=== PATIENT | male | born 1975 | race Caucasian/White ===

== ENCOUNTER 2016-12-06 08:53 | Emergency (ER) | payer BC ==
[2016-12-06 08:54] VITALS: BMI 39.0
[2016-12-06 09:18] VITALS: TEMP 99
--- NOTE | 2016-12-06 09:57 | ED PDOC ---
Arrival/HPI - General Chief Complaint: Lower Extremity Problem/Injury Time Seen by Provider: 12/06/16 09:25 Historian: Patient - History of Present Illness Narrative History of Present Illness (Text): 12/06/16 09:53 41yo morbidly obese male present with complaint of left great toe pain s/p trauma 2days ago. He states that he hyperextended his toe, when he stepped out of his truck 2days ago. Toe became swollen and pain today. Pain with weight bearing and ambulation. Took 2tabs of Ibuprofen this morning with mild relieve. Denies any other complaint. Past Medical History - Provider Review Nursing Documentation Reviewed: Yes - Infectious Disease Hx of Infectious Diseases: None - Tetanus Immunization Tetanus Immunization: Up to Date - Past Medical History Past Medical History: No Previous - Psychiatric Hx Psychophysiologic Disorder: No Hx Anxiety: No Hx Bipolar Disorder: No Hx Depression: No Hx Emotional Abuse: No Hx Hallucinations: No Hx Panic Disorder: No Hx Post Traumatic Stress Disorder: No Hx Psychosis: No Hx Physical Abuse: No Hx Schizophrenia: No Hx Sexual Abuse: No Hx Substance Use: No - Past Surgical History Past Surgical History: Non-Contributing - Surgical History Hx Orthopedic Surgery: Yes (left arm surgery and right knee surgery) - Anesthesia Hx Anesthesia: Yes Hx Anesthesia Reactions: No Hx Malignant Hyperthermia: No - Suicidal Assessment Feels Threatened In Home Enviroment: No Family/Social History - Physician Review Nursing Documentation Reviewed: Yes Family/Social History: Unknown Family HX Smoking Status: Heavy Smoker > 10 Cigarettes Daily Hx Alcohol Use: Yes Frequency of alcohol use: Socially Hx Substance Use: No Hx Substance Use Treatment: No Allergies/Home Meds Allergies/Adverse Reactions: Allergies almond Allergy (Verified 12/06/16 09:15) RASH Review of Systems - Physician Review All systems were reviewed & negative as marked: Yes - Review of Systems Constitutional: Normal Eyes: Normal ENT: Normal Respiratory: Normal Cardiovascular: Normal Gastrointestinal: Normal Genitourinary Male: Normal Musculoskeletal: Arthralgias (Left great toe) Skin: Normal Neurological: Normal Endocrine: Normal Hemo/Lymphatic: Normal Psychiatric: Normal Physical Exam Vital Signs Reviewed: Yes Vital Signs Temp Pulse Resp BP Pulse Ox 12/06/16 09:17 99.0 F 99 H 17 147/101 H 97 Temperature: Afebrile Blood Pressure: Hypertensive Pulse: Regular Respiratory Rate: Normal Appearance: Positive for: Well-Appearing, Non-Toxic, Comfortable Pain Distress: None Mental Status: Positive for: Alert and Oriented X 3 - Systems Exam Head: Present: Atraumatic, Normocephalic Pupils: Present: PERRL Extroacular Muscles: Present: EOMI Conjunctiva: Present: Normal Mouth: Present: Moist Mucous Membranes Neck: Present: Normal Range of Motion Respiratory/Chest: Present: Clear to Auscultation, Good Air Exchange. No: Respiratory Distress, Accessory Muscle Use Cardiovascular: Present: Regular Rate and Rhythm, Normal S1, S2. No: Murmurs Abdomen: Present: Normal Bowel Sounds. No: Tenderness, Distention, Peritoneal Signs Back: Present: Normal Inspection Upper Extremity: Present: Normal Inspection. No: Cyanosis, Edema Lower Extremity: Present: NORMAL PULSES, Tenderness (Over the great left toe), Swelling (Left great toe), Neurovascularly Intact. No: Edema, CALF TENDERNESS, Normal ROM, Erythema, Deformity, Temperature Abnormalties Neurological: Present: GCS=15, CN II-XII Intact, Speech Normal Skin: Present: Warm, Dry, Normal Color. No: Rashes Psychiatric: Present: Alert, Oriented x 3, Normal Insight, Normal Concentration Medical Decision Making ED Course and Treatment: 12/06/16 10:11 Left foot xray - No acute finding Orth shoe given. Referred to his PMD/Ortho. TRT ED for any new or worsening symptoms - RAD Interpretation Radiology Orders: 12/06/16 09:26 FOOT LEFT GREAT TOE ROUTINE [RAD] Stat - Medication Orders Current Medication Orders: Discontinued Medications Tramadol HCl (Ultram) 50 mg PO STAT STA Stop: 12/06/16 09:27 Last Admin: 12/06/16 09:31 Dose: 50 mg Disposition/Present on Arrival - Present on Arrival Any Indicators Present on Arrival: No History of DVT/PE: No History of Uncontrolled Diabetes: No Urinary Catheter: No History of Decub. Ulcer: No History Surgical Site Infection Following: None - Disposition Have Diagnosis and Disposition been Completed?: Yes Diagnosis: Toe sprain Disposition: HOME/ ROUTINE Disposition Time: 10:15 Patient Plan: Discharge Condition: STABLE Discharge Instructions (ExitCare): Arthralgia (ED) Additional Instructions: Follow up with your Doctor/Orthopedist Return to ED for any new or worsening symptoms Prescriptions: Naproxen [Naprosyn] 500 mg PO BID #20 tablet Referrals: Vik Mcgregor, [Primary Care Provider] - Follow up with primary Ajay Lees MD [Staff Provider] - Follow up with primary
--- NOTE | 2016-12-06 10:08 | RAD ---
PROCEDURE: Left Foot Radiographs. HISTORY: toe pain s/p trauma COMPARISON: None. FINDINGS: BONES: Normal. No fracture. JOINTS: Normal. SOFT TISSUES: Normal. OTHER FINDINGS: None. IMPRESSION: Normal left foot radiographs.
[2016-12-06 10:22] VITALS: BP 138/91; PULSE 86; RESP 18; O2SAT 98
== END 2016-12-06 10:48 | disposition home or self-care (01) ==
LOC: ED 08:53
DX: S93.502A Unspecified sprain of left great toe, initial encounter (principal); X50.0XXA Overexertion from strenuous movement or load, initial encounter; Y93.89 Activity, other specified; Y92.89 Other specified places as the place of occurrence of the external cause

== ENCOUNTER 2017-01-30 19:27 | Emergency (ER) | payer BC ==
[2017-01-30 19:29] VITALS: BMI 40.0
[2017-01-30 19:35] VITALS: RESP 18; TEMP 97.9
--- NOTE | 2017-01-30 19:59 | ED PDOC ---
Arrival/HPI - General Historian: Patient, Family - History of Present Illness Symptom Onset: Gradual Symptom Course: Unchanged Quality: Aching Severity Level: 3 <Paloma Carreon - Last Filed: 01/31/17 01:55> <Hung White - Last Filed: 01/31/17 02:50> - General Chief Complaint: Lower Extremity Problem/Injury Time Seen by Provider: 01/30/17 19:53 - History of Present Illness Narrative History of Present Illness (Text): 01/30/17 19:56 41-year-old male with a history of alcohol abuse and cocaine use presents today with bilateral leg pain and right knee pain worsening over the past 2 months. Patient denies chest pain or shortness of breath. No abdominal pain. No nausea or vomiting. Family members state the patient has been drinking a lot lately and has been using drugs. Patient states he needs help. Patient with a prior history of meniscal repair in the right knee complaining of continued pain and swelling to the right knee and pain in the right calf. No fevers or chills. ( Paloma Carreon) Past Medical History - Provider Review Nursing Documentation Reviewed: Yes - Travel History Have you recently traveled outside [place] w/in the past 3 mons?: No - Infectious Disease Hx of Infectious Diseases: None - Tetanus Immunization Tetanus Immunization: Up to Date - Past Medical History Past Medical History: No Previous - Cardiac Hx Hypertension: Yes - Musculoskeletal/Rheumatological Hx Gout: Yes - Gastrointestinal Other/Comment: some type of liver problem - Psychiatric Hx Psychophysiologic Disorder: No Hx Anxiety: No Hx Bipolar Disorder: No Hx Depression: No Hx Emotional Abuse: No Hx Hallucinations: No Hx Panic Disorder: No Hx Post Traumatic Stress Disorder: No Hx Psychosis: No Hx Physical Abuse: No Hx Schizophrenia: No Hx Sexual Abuse: No Hx Substance Use: Yes Other/Comment: alcohol abuse - Past Surgical History Past Surgical History: Non-Contributing - Surgical History Hx Orthopedic Surgery: Yes (left arm surgery and right knee surgery) - Anesthesia Hx Anesthesia: Yes Hx Anesthesia Reactions: No Hx Malignant Hyperthermia: No - Suicidal Assessment Feels Threatened In Home Enviroment: No <Paloma Carreon - Last Filed: 01/31/17 01:55> Family/Social History - Physician Review Nursing Documentation Reviewed: Yes Family/Social History: Unknown Family HX Smoking Status: Heavy Smoker > 10 Cigarettes Daily Hx Alcohol Use: Yes Frequency of alcohol use: Daily Hx Substance Use: Yes Substance used: marijuana; crack - last used 01/28/2017 Hx Substance Use Treatment: No <Paloma Carreon - Last Filed: 01/31/17 01:55> Allergies/Home Meds <Paloma Carreon - Last Filed: 01/31/17 01:55> <HusseinHung - Last Filed: 01/31/17 02:50> Allergies/Adverse Reactions: Allergies almond Allergy (Verified 12/06/16 09:15) RASH Home Medications: Home Meds Medication Instructions Recorded Confirmed Naproxen [Naprosyn] 500 mg PO BID PRN 01/30/17 01/30/17 Review of Systems - Review of Systems Constitutional: absent: Fatigue, Fevers Respiratory: absent: SOB, Cough Cardiovascular: absent: Chest Pain, Palpitations Gastrointestinal: absent: Abdominal Pain, Nausea, Vomiting Musculoskeletal: Arthralgias. absent: Back Pain, Neck Pain Skin: absent: Rash, Pruritis Neurological: absent: Headache, Dizziness Psychiatric: absent: Anxiety, Depression, Suicidal Ideation <Paloma Carreon - Last Filed: 01/31/17 01:55> Physical Exam Vital Signs Reviewed: Yes Temperature: Afebrile Blood Pressure: Hypertensive Pulse: Regular Respiratory Rate: Normal Appearance: Positive for: Well-Appearing, Non-Toxic, Comfortable Pain Distress: None Mental Status: Positive for: Alert and Oriented X 3 - Systems Exam Head: Present: Atraumatic Mouth: Present: Moist Mucous Membranes Neck: Present: Normal Range of Motion Respiratory/Chest: Present: Clear to Auscultation, Good Air Exchange. No: Respiratory Distress, Accessory Muscle Use Cardiovascular: Present: Regular Rate and Rhythm, Normal S1, S2. No: Murmurs Abdomen: No: Tenderness Upper Extremity: Present: Normal Inspection Lower Extremity: Present: CALF TENDERNESS, NORMAL PULSES, Normal ROM, Tenderness (right leg; + edema to knee, no erythema; full rom of knee with pain ; sensation and distal pulses intact. + calf tenderness. left leg; + minimal edema, + calf tenderness. ), Swelling, Neurovascularly Intact, Capillary Refill < 2 s. No: Temperature Abnormalties Neurological: Present: GCS=15, Speech Normal Skin: Present: Warm, Dry, Normal Color. No: Rashes Psychiatric: Present: Alert, Oriented x 3 <Paloma Carreon - Last Filed: 01/31/17 01:55> Medical Decision Making <Paloma Carreon - Last Filed: 01/31/17 01:55> <Hung White - Last Filed: 01/31/17 02:50> ED Course and Treatment: 01/30/17 19:59 Patient is nontoxic well-appearing in no distress vital signs are stable. CBC WNL CMP WNL Tylenol WNL Salicylate WNL Alcohol level 293 Urine drug screen:cocaine UA; trace blood cxr: wnl right knee xray; no fracture venous duplex bilateral lower legs; no DVT verbal report from [facility] [employer]. ekg normal sinus rhythm with sinus arrhythmia at 68 bpm normal axis normal intervals and no ST elevations 01/31/17 01:36 pt has been observed in the ER for 6 hours and is clinically sober. pt is medically cleared for PES evaluation and Detox Patient was seen and evaluated by PES screener: Freida all results discussed with patient. Impression; alcohol intoxication transfer to [facility] 01/31/17 01:55 case signed out to dr. white; pending accepting physician for detox. ( Paloma Carreon) 01/31/17 02:00 Case endorsed to ca pending transfer for detox. 01/31/17 02:46 Pt accepted on transfer for alcohol detox by Dr. Jay at [facility]. Pt stable for transfer. (Hung White) - Lab Interpretations Lab Results: 01/30/17 21:27 01/30/17 21:27 Lab Results 01/30/17 22:38: Urine Opiates Screen Negative, Urine Methadone Screen Negative, Ur Barbiturates Screen Negative, Ur Phencyclidine Scrn Negative, Ur Amphetamines Screen Negative, U Benzodiazepines Scrn Negative, U Oth Cocaine Metabols Positive H, U Cannabinoids Screen Negative 01/30/17 22:38: Urine Color Yellow, Urine Appearance Clear, Urine pH 6.0, Ur Specific [place] >= 1.030, Urine Protein 100 H, Urine Glucose (UA) Negative, Urine Ketones Negative, Urine Blood Trace-intact H, Urine Nitrate Negative, Urine Bilirubin Negative, Urine Urobilinogen 0.2, Ur Leukocyte Esterase Negative , Urine RBC 1 - 3, Urine WBC 2 - 5, Ur Epithelial Cells 0 - 2, Urine Bacteria Rare 01/30/17 21:27: Alcohol, Quantitative 293 H 01/30/17 21:27: Salicylates < 1 L, Acetaminophen < 10.0 L 01/30/17 21:27: Sodium 143, Potassium 3.8, Chloride 109 H, Carbon Dioxide 21, Anion Gap 17, BUN 11, Creatinine 0.9, Est GFR ( Amer) > 60, Est GFR (Non- Af Amer) > 60, Random Glucose 98, Calcium 8.3 L, Total Bilirubin 0.4, AST 40, ALT 51, Alkaline Phosphatase 89, Total Protein 7.1, Albumin 3.8, Globulin 3.3, Albumin/Globulin Ratio 1.2 01/30/17 21:27: WBC 5.9, RBC 4.72, Hgb 15.2, Hct 43.1, MCV 91.3, MCH 32.2, MCHC 35.3, RDW 13.8, Plt Count 257, MPV 9.3, Gran % 40.5 L, Lymph % (Auto) 51.1 H, [place] % (Auto) 6.1 H, Eos % (Auto) 2.0, Baso % (Auto) 0.3, Gran # 2.40, Lymph # 3.0, [place] # 0.4, Eos # 0.1, Baso # 0.02 - RAD Interpretation Radiology Orders: 01/30/17 19:54 CHEST PORTABLE [RAD] Stat KNEE RIGHT 2 VIEWS (AP & LAT) [RAD] Stat DUPLEX LOWER EXTRM VEIN BILAT [US] Stat - PA / DESKTOP ENGINEER / Resident Statement SCOT has reviewed & agrees with the documentation as recorded. SCOT has examined the patient and agrees with the treatment plan. <Hung White - Last Filed: 01/31/17 02:50> Disposition/Present on Arrival - Present on Arrival Any Indicators Present on Arrival: No History of DVT/PE: No History of Uncontrolled Diabetes: No Urinary Catheter: No History of Decub. Ulcer: No History Surgical Site Infection Following: None - Disposition Have Diagnosis and Disposition been Completed?: Yes Disposition Time: 01:05 Patient Plan: Transfer To [email or web address]) <Paloma Carreon - Last Filed: 01/31/17 01:55> <Hung White - Last Filed: 01/31/17 02:50> - Disposition Diagnosis: Alcohol intoxication, Alcohol abuse Patient Problems: Current Active Problems Problem Status Onset Alcohol abuse Acute Alcohol intoxication Acute Condition: FAIR Referrals: Ciaran Robins MD [Primary Care Provider] - Follow up with primary
[2017-01-30 21:34] LABS: ADD MANUAL DIFF? NO
[2017-01-30 21:50] LABS: BASO # 0.02 K/mm3 (0.0-2.0); BASO % 0.3 % (0.0-3.0); EOS # 0.1 (0.0-0.7); GRAN % 40.5 % (50.0-68.0); HEMATOCRIT 43.1 % (42.0-52.0); LYMPH % 51.1 % (22.0-35.0); MEAN CELL VOLUME 91.3 fL (80.0-105.0); MEAN CORPUSCULAR HEMOGLOBIN 32.2 pg (25.0-35.0); MEAN CORPUSCULAR HGB CONC 35.3 g/dl (31.0-37.0); MEAN PLATELET VOLUME 9.3 fl (7.0-11.0); MONO # 0.4 (0.1-0.6); MONO % 6.1 % (1.0-6.0); PLATELET COUNT 257 10^3/uL (120.0-450.0); RED CELL DISTRIBUTION WIDTH 13.8 % (11.5-14.5); WHITE BLOOD COUNT 5.9 10^3/ul (4.5-11.0)
[2017-01-30 22:13] LABS: ALB/GLOB RATIO 1.2 (1.1-1.8); ALKALINE PHOSPHATASE 89 U/L (38-133); ALT/SGPT 51 U/L (7-56); AST/SGOT 40 U/L (15-59); BILIRUBIN,TOTAL 0.4 mg/dL (0.2-1.3); BLOOD UREA NITROGEN 11 mg/dL (7-21); CALCIUM 8.3 mg/dL (8.4-10.5); CARBON DIOXIDE 21 mmol/L (21-33); CHLORIDE 109 mmol/L (98-107); GFR AFRICAN-AMERICAN > 60; GLUCOSE,RANDOM 98 mg/dL (70-110); POTASSIUM 3.8 mmol/L (3.6-5.0); SODIUM 143 mmol/L (132-148); TOTAL PROTEIN 7.1 g/dL (5.8-8.3)
[2017-01-30 23:05] LABS: URINE BILIRUBIN NEGATIVE (NEGATIVE); URINE BLOOD TRACE-INTACT (NEGATIVE); URINE GLUCOSE (UA) NEGATIVE (NEGATIVE); URINE KETONE NEGATIVE (NEGATIVE); URINE LEUKOCYTE ESTERASE NEGATIVE Leu/uL (NEGATIVE); URINE PROTEIN 100 mg/dL (<30 mg/dL); URINE UROBILINOGEN 0.2 E.U./dL (<1 E.U./dL)
[2017-01-30 23:08] LABS: URINE APPEARANCE CLEAR (CLEAR); URINE COLOR YELLOW (YELLOW)
[2017-01-30 23:36] LABS: URINE BACTERIA RARE (NEG); URINE EPITHELIAL CELLS 0 - 2 /hpf (0-5)
[2017-01-31 01:43] VITALS: O2SAT 99
[2017-01-31 03:54] VITALS: BP 143/91; PULSE 92
--- NOTE | 2017-01-31 09:48 | RAD ---
HISTORY: pes eval COMPARISON: 02/07/2016 FINDINGS: LUNGS: No active pulmonary disease. PLEURA: No significant pleural effusion identified, no pneumothorax apparent. CARDIOVASCULAR: Normal. OSSEOUS STRUCTURES: No significant abnormalities. VISUALIZED UPPER ABDOMEN: Normal. OTHER FINDINGS: None. IMPRESSION: No active disease.
--- NOTE | 2017-01-31 09:48 | RAD ---
PROCEDURE: Right Knee Radiographs. HISTORY: right knee pain COMPARISON: None. FINDINGS: BONES: Normal. No fracture. JOINTS: Normal. No osteoarthritis. JOINT EFFUSION: None. OTHER FINDINGS: None. IMPRESSION: Normal radiographs of the right knee.
--- NOTE | 2017-01-31 12:08 | CARD ---
APPROVED REPORT EKG Measurement Heart [id number] MN 140P [id number] <Conclusion> Normal sinus rhythm with sinus arrhythmia Low voltage QRS Left posterior fascicular block Abnormal ECG
--- NOTE | 2017-01-31 14:48 | US ---
HISTORY: Bilateral lower extremity venous ultrasound. Leg pain and swelling PHYSICIAN(S): Corby Preciado MD. TECHNIQUE: Duplex sonography and color-flow Doppler with graded compression were used to evaluate the deep venous systems of both lower extremities. The exam is limited by body habitus and edema. The tibial veins are not well seen FINDINGS: The visualized deep venous systems of both lower extremities are sonographically normal and compressible. Normal wave forms and augmentation are seen. There is no sonographic evidence for deep venous thrombosis in the visualized segments of both lower extremities. IMPRESSION: No sonographic evidence for deep venous thrombosis in the visualized segments of both lower extremities.
== END 2017-01-31 04:18 | disposition short-term general hospital (02) ==
LOC: ED 19:27
DX: F10.129 Alcohol abuse with intoxication, unspecified (principal); Y90.8 Blood alcohol level of 240 mg/100 ml or more
CPT/HCPCS: 71010; 73560; 80053; 81001; 85025; 93005; 93970; 99285; G0480

== ENCOUNTER 2017-04-24 14:35 | Emergency (ER) | payer BC ==
[2017-04-24 14:35] VITALS: BMI 40.0
[2017-04-24 14:54] VITALS: BP 141/79; PULSE 87; RESP 16; TEMP 98.2; O2SAT 97
--- NOTE | 2017-04-24 15:03 | ED PDOC ---
Arrival/HPI - General Chief Complaint: ENT Problem Time Seen by Provider: 04/24/17 14:50 Historian: Patient - History of Present Illness Narrative History of Present Illness (Text): 04/24/17 14:50 A 41 year old male, whose past medical history includes EtOH and substance abuse , presents to the emergency department complaining of chin pain for 2 days. Patient reports while at home, he was placing shower curtains while holding his keys. His hand slipped from the shower rajwinder and hit his chin with giordano chain, resulting in minimal puncture. He is here with chin pain and is concerned about part of the keychain being in his chin. Patient denies of any fever, chills, nausea, vomiting, diarrhea, abdominal pain, or any other complaints. Last tetanus is 2-3 years ago. No PMD Time/Duration: > week (2 days ago) Symptom Onset: Sudden Symptom Course: Unchanged Context: Home Past Medical History - Provider Review Nursing Documentation Reviewed: Yes - Infectious Disease Hx of Infectious Diseases: None - Tetanus Immunization Tetanus Immunization: Up to Date - Past Medical History Past Medical History: No Previous - Cardiac Hx Cardiac Disorders: Yes Hx Hypertension: Yes - Pulmonary Hx Respiratory Disorders: No - Neurological Hx Neurological Disorder: No - HEENT Hx HEENT Disorder: No - Renal Hx Renal Disorder: No - Endocrine/Metabolic Hx Endocrine Disorders: No - Hematological/Oncological Hx Blood Disorders: No - Integumentary Hx Dermatological Disorder: No - Musculoskeletal/Rheumatological Hx Musculoskeletal Disorders: No Hx Falls: (fell playing sports) - Gastrointestinal Hx Gastrointestinal Disorders: No - Genitourinary/Gynecological Hx Genitourinary Disorders: No - Psychiatric Hx Anxiety: No Hx Bipolar Disorder: No Hx Depression: No Hx Post Traumatic Stress Disorder: No Hx Schizophrenia: No Hx Substance Use: No - Past Surgical History Past Surgical History: Non-Contributing - Surgical History Hx Orthopedic Surgery: Yes (left arm surgery and right knee surgery) - Anesthesia Hx Anesthesia: Yes Hx Anesthesia Reactions: No Hx Malignant Hyperthermia: No - Suicidal Assessment Feels Threatened In Home Enviroment: No Family/Social History - Physician Review Nursing Documentation Reviewed: Yes Family/Social History: No Known Family HX Smoking Status: Light Smoker < 10 Cigarettes Daily Hx Alcohol Use: No Hx Substance Use: No Substance used: marijuana; crack - last used 01/28/2017 Hx Substance Use Treatment: No Allergies/Home Meds Allergies/Adverse Reactions: Allergies almond Allergy (Verified 04/24/17 14:42) ANAPHYLAXIS Review of Systems - Physician Review All systems were reviewed & negative as marked: Yes - Review of Systems Constitutional: absent: Fevers, Night Sweats Gastrointestinal: absent: Abdominal Pain, Diarrhea, Nausea, Vomiting Skin: Other (puncture wound) Physical Exam Vital Signs Reviewed: Yes Vital Signs Temp Pulse Resp BP Pulse Ox 04/24/17 14:39 98.2 F 87 16 141/79 97 Temperature: Afebrile Blood Pressure: Normal Pulse: Regular Respiratory Rate: Normal Appearance: Positive for: Well-Appearing, Non-Toxic, Comfortable Pain Distress: None Mental Status: Positive for: Alert and Oriented X 3 - Systems Exam Head: Present: Tenderness (warm, erythemous), Laceration (2x2 cm area swelling with small right-side puncture wound, draining pus. ) Pupils: Present: PERRL Conjunctiva: Present: Normal Mouth: Present: Other (no intraoral injury) Pharnyx: Present: Normal. No: ERYTHEMA, EXUDATE Neck: Present: Normal Range of Motion Respiratory/Chest: Present: Clear to Auscultation, Good Air Exchange. No: Respiratory Distress, Accessory Muscle Use Cardiovascular: Present: Regular Rate and Rhythm, Normal S1, S2. No: Murmurs Abdomen: Present: Normal Bowel Sounds. No: Tenderness, Distention, Peritoneal Signs Back: Present: Normal Inspection Upper Extremity: Present: Normal Inspection. No: Cyanosis, Edema Lower Extremity: Present: Normal Inspection. No: Edema Neurological: Present: GCS=15, CN II-XII Intact, Speech Normal Skin: Present: Warm, Dry, Normal Color. No: Rashes Psychiatric: Present: Alert, Oriented x 3, Normal Insight, Normal Concentration Medical Decision Making ED Course and Treatment: 04/24/17 14:56 Impression: 41 year old male with chin pain. Physical exam shows 2x2 cm area swelling with small right-side puncture wound, draining minimal pus, warm, tenderness, erythemous; no intraoral injury. Plan: -- Mandible X-Ray -- Reassess and disposition Prior Visits: Notes and results from previous visits were reviewed. Patient was last seen in the emergency department on 01/31/2017 for detox. Patient was admitted. Progress Notes: 04/24/2017 16:00 Mandible X-ray IMPRESSION: No mandibular fracture or cortical interruption. Right paracentral soft tissue swelling with metallic like density in this area. Correlate clinically Dictator : Shireen Person V. 04/24/17 17:11 Procedure: FB Removal Patient wound site injected with lidocaine 1%. FB felt with Nata clamps; 2 FB removed with forceps. Repeat x-ray confirming no FB left. Tolerated procedure well. 04/24/17 17:13 Patient with noted history; FB removed. Minimal pus was present but cellulitis is also present - will d/c on oral antibiotics and f/u in the medical clinic. - RAD Interpretation Radiology Orders: 04/24/17 14:53 MANDIBLE > 4 VIEWS [RAD] Stat 04/24/17 16:27 MANDIBLE PARTIAL <4 VIEWS [RAD] Stat - Scribe Statement The provider has reviewed the documentation as recorded by the Hao Gastelum Provider Scribe Attestation: All medical record entries made by the Scribe were at my direction and personally dictated by me. I have reviewed the chart and agree that the record accurately reflects my personal performance of the history, physical exam, medical decision making, and the department course for this patient. I have also personally directed, reviewed, and agree with the discharge instructions and disposition. Disposition/Present on Arrival - Present on Arrival Any Indicators Present on Arrival: No History of DVT/PE: No History of Uncontrolled Diabetes: No Urinary Catheter: No History of Decub. Ulcer: No History Surgical Site Infection Following: None - Disposition Have Diagnosis and Disposition been Completed?: Yes Diagnosis: Foreign body of chin with infection Disposition: HOME/ ROUTINE Disposition Time: 17:10 Patient Plan: Discharge Condition: GOOD Additional Instructions: Apply warm soaks to the infection site. Take the antibiotics as prescribed. Follow up with the medical clinic or primary care doctor. Return to the emergency department if any new concerning symptoms. Prescriptions: Cefadroxil [Duricef] 1 cap PO BID #14 cap Sulfamethoxazole/Trimethoprim [Bactrim DS 800 mg-160 mg] 1 tab PO BID #14 tab Referrals: [facility] [Outside] - Follow up with primary Forms: Orate (Italian)
--- NOTE | 2017-04-24 16:02 | RAD ---
PROCEDURE: HISTORY: chin injury - r/o FB COMPARISON: None TECHNIQUE: Four views FINDINGS: Right paracentral metallic density within the extraosseous soft tissues just anterior to the right mandible. Overlying soft tissue swelling here. . It is unknown if patient has any known appears pieces of jewelry. Correlate clinically. No mandibular fracture or cortical interruption suggested. IMPRESSION: No mandibular fracture or cortical interruption. Right paracentral soft tissue swelling with metallic like density in this area. Correlate clinically
--- NOTE | 2017-04-25 18:43 | RAD ---
PROCEDURE: Radiographs of the mandible INDICATION: COMPARISON: 04/24/2017. FINDINGS: AP and lateral e views were obtained. The mandible appears intact without evidence of bone destruction or fracture. No definite temporomandibular joint dislocation is identified. The visualized soft tissues are unremarkable. There is no radiopaque foreign body. IMPRESSION: No radiographic evidence for radiopaque foreign body.
== END 2017-04-24 17:22 | disposition home or self-care (01) ==
LOC: ED 14:35
DX: S00.85XA Superficial foreign body of other part of head, initial encounter (principal); L08.9 Local infection of the skin and subcutaneous tissue, unspecified; W22.8XXA Striking against or struck by other objects, initial encounter; Y92.009 Unspecified place in unspecified non-institutional (private) residence as the place of occurrence of the external cause

== ENCOUNTER 2018-01-03 10:00 | Emergency (ER) | payer BC ==
[2018-01-03 10:01] VITALS: BMI 40.0
[2018-01-03] MEDS ORDERED: Oxycodone/Acetaminophen 5/325 mg Tab PO STA (10:28)
--- NOTE | 2018-01-03 10:34 | ED PDOC ---
Arrival/HPI - General Chief Complaint: Lower Extremity Problem/Injury Time Seen by Provider: 01/03/18 10:27 Historian: Patient - History of Present Illness Narrative History of Present Illness (Text): 01/03/18 10:32 42 y/o male, pmh including gout, nkda, c/o lt. ankle pain x 3 days with no fall or trauma. Aching pain, aggravated by walking, no calf pain, no thigh pain, no numbness or tingling, no headache or night sweat, no rash, no other medical or psychological complaints. Past Medical History - Provider Review Nursing Documentation Reviewed: Yes - Infectious Disease Hx of Infectious Diseases: None - Tetanus Immunization Tetanus Immunization: Up to Date - Past Medical History Past Medical History: No Previous - Cardiac Hx Cardiac Disorders: Yes Hx Hypertension: Yes - Pulmonary Hx Respiratory Disorders: No - Neurological Hx Neurological Disorder: No - HEENT Hx HEENT Disorder: No - Renal Hx Renal Disorder: No - Endocrine/Metabolic Hx Endocrine Disorders: No - Hematological/Oncological Hx Blood Disorders: No - Integumentary Hx Dermatological Disorder: No - Musculoskeletal/Rheumatological Hx Musculoskeletal Disorders: Yes Hx Gout: Yes - Gastrointestinal Hx Gastrointestinal Disorders: Yes Other/Comment: INFLAMMED LIVER - Genitourinary/Gynecological Hx Genitourinary Disorders: No - Psychiatric Hx Psychophysiologic Disorder: No Hx Substance Use: Yes - Past Surgical History Past Surgical History: Non-Contributing - Surgical History Hx Orthopedic Surgery: Yes (left arm surgery and right knee surgery) - Anesthesia Hx Anesthesia: Yes Hx Anesthesia Reactions: No Hx Malignant Hyperthermia: No - Suicidal Assessment Feels Threatened In Home Enviroment: No Family/Social History - Physician Review Nursing Documentation Reviewed: Yes Family/Social History: Unknown Family HX Smoking Status: Current Some Days Smoker Hx Alcohol Use: Yes Hx Substance Use: Yes Substance used: marijuana; crack - last used 01/28/2017 Hx Substance Use Treatment: No Allergies/Home Meds Allergies/Adverse Reactions: Allergies almond Allergy (Verified 01/03/18 10:02) ANAPHYLAXIS Review of Systems - Review of Systems Constitutional: absent: Fatigue, Fevers Eyes: absent: Vision Changes ENT: absent: Hearing Changes Respiratory: absent: SOB, Cough Cardiovascular: absent: Chest Pain Gastrointestinal: absent: Abdominal Pain, Diarrhea, Nausea, Vomiting Musculoskeletal: Arthralgias, Joint Swelling. absent: Back Pain, Neck Pain, Myalgias Skin: absent: Rash, Pruritis Neurological: absent: Headache, Dizziness Psychiatric: absent: Anxiety, Depression, Suicidal Ideation Physical Exam Vital Signs Reviewed: Yes Vital Signs Temp Pulse Resp BP Pulse Ox 01/03/18 12:39 98.4 F 84 18 129/79 96 01/03/18 10:03 98.8 F 90 17 120/85 98 01/03/18 10:01 98.8 F 90 17 120/85 98 Temperature: Afebrile Blood Pressure: Normal Pulse: Regular Respiratory Rate: Normal Appearance: Positive for: Well-Appearing, Non-Toxic, Comfortable Pain Distress: Moderate Mental Status: Positive for: Alert and Oriented X 3 - Systems Exam Head: Present: Atraumatic, Normocephalic Pupils: Present: PERRL Extroacular Muscles: Present: EOMI Conjunctiva: Present: Normal Mouth: Present: Moist Mucous Membranes Neck: Present: Normal Range of Motion Respiratory/Chest: Present: Clear to Auscultation, Good Air Exchange. No: Respiratory Distress, Accessory Muscle Use Cardiovascular: Present: Regular Rate and Rhythm, Normal S1, S2. No: Murmurs Abdomen: No: Tenderness, Distention, Peritoneal Signs Back: Present: Normal Inspection Upper Extremity: Present: Normal Inspection. No: Cyanosis, Edema Lower Extremity: Present: Normal Inspection, Other (Lt. ankle: +swelling and mild +ttp on the medial aspect of the ankle, negative silvia and conner signs, FROM without limitation, sensation intact, motor 5/5, +DPPT pulses, capillary refill< 2 seconds, neurovascular intact. ). No: Edema Neurological: Present: GCS=15, CN II-XII Intact, Speech Normal Skin: Present: Warm, Dry, Normal Color. No: Rashes Psychiatric: Present: Alert, Oriented x 3, Normal Insight, Normal Concentration Medical Decision Making ED Course and Treatment: 01/03/18 10:35 -labs -Lt. ankle xray -LLE venuous doppler -Toradol IM and Percocet po -Observe and reassess 01/03/18 12:02 -Labs are non-significant except Uric acid is 9.7, colchine 1.2mg po ordered -Lt.ankle show soft tissue swelling with no fracture or dislocation -Lt. LE venuous doppler: as per preliminary report, no acute DVT -Pain improved, request to be discharged home, will discharge ome. -Discharge home with indocin, colchicine, cane, avoid alcohol/redmeat/seafood for 1 week, follow up with your own pmd and orthopedic within 2 days, return to the ER for any new or worsening signs or symptoms. - Lab Interpretations Lab Results: 01/03/18 10:45 Lab Results 01/03/18 10:45: Sodium 144, Potassium 3.9, Chloride 107, Carbon Dioxide 24, Anion Gap 17, BUN 15, Creatinine 1.0, Est GFR ( Amer) > 60, Est GFR (Non- Af Amer) > 60, Random Glucose 103, Uric Acid 9.7 H, Calcium 8.7, Total Bilirubin 0.6, AST 38, ALT 53, Alkaline Phosphatase 67, Total Protein 7.0, Albumin 4.0, Globulin 2.9, Albumin/Globulin Ratio 1.4 - RAD Interpretation Radiology Orders: 01/03/18 10:27 ANKLE LEFT 3 VIEWS ROUTINE [RAD] Stat DUPLEX LOWER EXTRM VEIN LEFT [US] Stat Lt. ankle xray: PROCEDURE: Left Ankle Radiographs. HISTORY: Chronic left ankle pain and swelling. No history of trauma. COMPARISON: None FINDINGS: BONES: Plantar and Achilles Tendon insertion calcaneal spurs. JOINTS: Normal. No osteoarthritis. Ankle mortise maintained. Talar dome intact SOFT TISSUES: Diffuse soft tissue swelling more prominent medially than laterally without distal tibial, fibular or talar fracture. OTHER FINDINGS: None. IMPRESSION: Soft tissue swelling without acute articular or osseous abnormality. 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 Yes Sleep Is patient sleeping during reassessment? No Presence of Pain Presence of Pain Yes Location Left, Right or Bilateral Left Pain Location Body Site Ankle Description Description Intermittent IM Administration Charges Document 01/03/18 10:43 SRE (Rec: 01/03/18 10:43 SRE [id number]) Charges for Administration # of IM Administrations 1 Oxycodone/Acetaminophen (Percocet 5/325 Mg Tab) 1 tab PO STAT STA Stop: 01/03/18 10:29 Last Admin: 01/03/18 10:42 Dose: 1 tab MAR Pain Assessment Document 01/03/18 10:42 SRE (Rec: 01/03/18 10:43 SRE [id number]) Pain Reassessment Is this a pain reassessment? Yes Sleep Is patient sleeping during reassessment? No Presence of Pain Presence of Pain Yes Pain Scale Used Pain Scale Used Numeric Location Left, Right or Bilateral Left Pain Location Body Site Ankle Description Description Intermittent - PA / [employer] / Resident Statement MD/DO has reviewed & agrees with the documentation as recorded. Disposition/Present on Arrival - Present on Arrival Any Indicators Present on Arrival: No History of DVT/PE: No History of Uncontrolled Diabetes: No Urinary Catheter: No History of Decub. Ulcer: No History Surgical Site Infection Following: None - Disposition Have Diagnosis and Disposition been Completed?: Yes Diagnosis: Gout, arthritis Disposition: HOME/ ROUTINE Disposition Time: 10:36 Patient Plan: Discharge Condition: IMPROVED Discharge Instructions (ExitCare): Gout, Lifestyle Changes to Manage Gout Additional Instructions: -Discharge home with indocin, colchicine, cane, avoid alcohol/redmeat/seafood for 1 week, follow up with your own pmd and orthopedic within 2 days, return to the ER for any new or worsening signs or symptoms. Prescriptions: Colchicine 0.6 mg PO BID #14 cap Indomethacin [Indocin] 50 mg PO TID PRN #30 cap PRN Reason: Other Referrals: Ciaran Robins MD [Staff Provider] - Follow up with primary Florentino Colón MD [Staff Provider] - Follow up with primary Forms: WORK NOTE
[2018-01-03 11:08] LABS: ALB/GLOB RATIO 1.4 (1.1-1.8); ALT/SGPT 53 U/L (7-56); AST/SGOT 38 U/L (17-59); BLOOD UREA NITROGEN 15 mg/dL (7-21); CALCIUM 8.7 mg/dL (8.4-10.5); GFR AFRICAN-AMERICAN > 60; GFR NON-AFRICAN AMERICAN > 60; URIC ACID 9.7 mg/dL (3.5-8.5)
--- NOTE | 2018-01-03 11:51 | RAD ---
PROCEDURE: Left Ankle Radiographs. HISTORY: Chronic left ankle pain and swelling. No history of trauma. COMPARISON: None FINDINGS: BONES: Plantar and Achilles Tendon insertion calcaneal spurs. JOINTS: Normal. No osteoarthritis. Ankle mortise maintained. Talar dome intact SOFT TISSUES: Diffuse soft tissue swelling more prominent medially than laterally without distal tibial, fibular or talar fracture. OTHER FINDINGS: None. IMPRESSION: Soft tissue swelling without acute articular or osseous abnormality.
[2018-01-03 12:40] VITALS: BP 129/79; PULSE 84; RESP 18; TEMP 98.4; O2SAT 96
--- NOTE | 2018-01-03 20:04 | US ---
PROCEDURE: Left lower extremity venous US HISTORY: Leg pain and swelling. Evaluate for DVT. PHYSICIAN(S): Corby Preciado MD. TECHNIQUE: Duplex sonography and color-flow Doppler with graded compression were used to evaluate the deep venous system of the left lower extremity. FINDINGS: The visualized deep venous system of the left lower extremity is sonographically normal and compressible. Normal wave forms and augmentation are seen. There is no sonographic evidence for deep venous thrombosis in the visualized segments of the left lower extremity. IMPRESSION: 1. No sonographic evidence for deep venous thrombosis in the visualized segments of the left lower extremity.
== END 2018-01-03 12:39 | disposition home or self-care (01) ==
LOC: ED 10:00
DX: M10.9 Gout, unspecified (principal); I10 Essential (primary) hypertension; F17.210 Nicotine dependence, cigarettes, uncomplicated
CPT/HCPCS: 73610; 80053; 84550; 93971; 96372; 99284; J1885

== ENCOUNTER 2018-04-18 17:14 | Emergency (ER) | payer BC ==
[2018-04-18 17:25] VITALS: BMI 38.3
--- NOTE | 2018-04-18 19:15 | ED PDOC ---
Arrival/HPI - General Chief Complaint: Alcohol Ingestion Time Seen by Provider: 04/18/18 17:34 Historian: Patient - History of Present Illness Narrative History of Present Illness (Text): 04/18/18 19:16 42 yo M seeking detox from etoh. States that he drinks daily, and at times uses cocaine when he starts to binge drink. He states that he was in a detox program 1 year ago, had success, then 6 months ago had a relapse and started drinking almost daily. 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 Denies any tremors, anxiety, depression, hearing voices, SI, HI, headache, dizziness, CP, SOB, abdominal pain, N/V, fever. Has no other complaints. PMD [place] Past Medical History - Infectious Disease Hx of Infectious Diseases: None - Tetanus Immunization Tetanus Immunization: Up to Date - Past Medical History Past Medical History: No Previous - Cardiac Hx Cardiac Disorders: Yes Hx Hypertension: Yes - Pulmonary Hx Respiratory Disorders: No - Neurological Hx Neurological Disorder: No - HEENT Hx HEENT Disorder: No - Renal Hx Renal Disorder: No - Endocrine/Metabolic Hx Endocrine Disorders: No - Hematological/Oncological Hx Blood Disorders: No - Integumentary Hx Dermatological Disorder: No - Musculoskeletal/Rheumatological Hx Musculoskeletal Disorders: Yes Hx Gout: Yes - Gastrointestinal Hx Gastrointestinal Disorders: Yes Other/Comment: INFLAMMED LIVER - Genitourinary/Gynecological Hx Genitourinary Disorders: No - Psychiatric Hx Substance Use: Yes Other/Comment: ETOH - Past Surgical History Past Surgical History: Non-Contributing - Surgical History Hx Orthopedic Surgery: Yes (left arm surgery and right knee surgery) - Anesthesia Hx Anesthesia: Yes Hx Anesthesia Reactions: No Hx Malignant Hyperthermia: No - Suicidal Assessment Feels Threatened In Home Enviroment: No Family/Social History Family/Social History: No Known Family HX Smoking Status: Current Some Days Smoker Hx Alcohol Use: Yes Frequency of alcohol use: Daily Hx Substance Use: Yes Substance used: marijuana; crack - last used 01/28/2017 Hx Substance Use Treatment: No Allergies/Home Meds Allergies/Adverse Reactions: Allergies almond Allergy (Verified 01/03/18 10:02) ANAPHYLAXIS Home Medications: Home Meds Medication Instructions Recorded Confirmed No Known Home Med 04/18/18 04/18/18 Review of Systems - Review of Systems Constitutional: absent: Fatigue, Fevers Respiratory: absent: SOB, Cough Cardiovascular: absent: Chest Pain, Palpitations Gastrointestinal: absent: Abdominal Pain, Diarrhea, Vomiting Genitourinary Male: absent: Dysuria, Frequency Musculoskeletal: absent: Arthralgias, Back Pain, Neck Pain Skin: absent: Rash, Pruritis, Skin Lesions Neurological: absent: Headache, Dizziness Psychiatric: Other (+daily alcohol use, +cocaine use) Physical Exam Vital Signs Temp Pulse Resp BP Pulse Ox 04/18/18 17:26 98.5 F 111 H 18 130/87 95 Temperature: Afebrile Blood Pressure: Normal Pulse: Tachycardic Respiratory Rate: Normal Appearance: Positive for: Well-Appearing, Non-Toxic, Comfortable Pain Distress: None Mental Status: Positive for: Alert and Oriented X 3 - Systems Exam Head: Present: Atraumatic, Normocephalic Pupils: Present: PERRL Extroacular Muscles: Present: EOMI Conjunctiva: Present: Injected (+mild injection to both eyes) Mouth: Present: Moist Mucous Membranes Neck: Present: Normal Range of Motion Respiratory/Chest: Present: Clear to Auscultation, Good Air Exchange. No: Respiratory Distress, Accessory Muscle Use Cardiovascular: Present: Regular Rate and Rhythm, Normal S1, S2. No: Murmurs Abdomen: No: Tenderness, Distention, Peritoneal Signs Back: Present: Normal Inspection Upper Extremity: Present: Normal Inspection. No: Cyanosis, Edema Lower Extremity: Present: Normal Inspection. No: Edema Neurological: Present: GCS=15, CN II-XII Intact, Speech Normal, Motor Func Grossly Intact, Normal Sensory Function, Gait Normal Skin: Present: Warm, Dry, Normal Color. No: Rashes Psychiatric: Present: Alert, Oriented x 3, Normal Insight, Normal Concentration , Normal Affect, Normal Mood. No: Anxious, Agitated, Suicidal Ideation, Homicidal Ideation, Delusional, Hallucinations Medical Decision Making ED Course and Treatment: 04/18/18 19:11 Previous medical records reviewed : patient was seen and evaluated in this ER on 01/30/17 for etoh detox, he was transferred to [facility] for detox. Plan : - Labs - UDS - UA Call placed to [facility], they currently have no beds available for detox. 18:50 Call placed to [facility] detox , states that they have beds and can take the patient and arrange transport as long as the patient is accepted for admission by their physician. They request labs be drawn and then to fax over the results and any other pertinent medical records available for the patient. 20:00 Labs reviewed : alcohol 261, UDS +cocaine. Rest of the labs wnl. Patient is medically cleared. Lab and H&P faxed to [facility] [phone]. 20:30 Spoke to Karlee from [facility], states that the patient will be accepted to their facility for etoh detox, she states that the patient can be d/c from the ER, they will arrange transportation for the patient to get to their facility. The patient is in agreement to being d/c to the care of [facility] for the treatment of etoh detox. - Lab Interpretations Lab Results: 04/18/18 19:33 04/18/18 19:33 Lab Results 04/18/18 19:33: Alcohol, Quantitative 261 H 04/18/18 19:33: Sodium 143, Potassium 3.8, Chloride 111 H, Carbon Dioxide 20 L, Anion Gap 16, BUN 11, Creatinine 1.0, Est GFR ( Amer) > 60, Est GFR (Non- Af Amer) > 60, Random Glucose 100, Calcium 8.6, Total Bilirubin 0.2, AST 42, ALT 42, Alkaline Phosphatase 83, Total Protein 7.4, Albumin 4.3, Globulin 3.1, Albumin/Globulin Ratio 1.4 04/18/18 19:33: WBC 6.2, RBC 4.46, Hgb 14.1, Hct 40.8 L, MCV 91.5, MCH 31.6, MCHC 34.6, RDW 13.9, Plt Count 256, MPV 9.5, Gran % 45.5 L, Lymph % (Auto) 46.8 H, Dickey % (Auto) 3.2, Eos % (Auto) 4.2, Baso % (Auto) 0.3, Gran # 2.80, Lymph # (Auto) 2.9, Dickey # (Auto) 0.2, Eos # (Auto) 0.3, Baso # (Auto) 0.02 04/18/18 19:22: Urine Opiates Screen Negative, Urine Methadone Screen Negative, Ur Barbiturates Screen Negative, Ur Phencyclidine Scrn Negative, Ur Amphetamines Screen Negative, U Benzodiazepines Scrn Negative, U Oth Cocaine Metabols Positive H, U Cannabinoids Screen Negative 04/18/18 19:22: Urine Color Yellow, Urine Appearance Slight-cloudy, Urine pH 6.0 , Ur Specific Ulman >= 1.030, Urine Protein 100 H, Urine Glucose (UA) Negative , Urine Ketones Negative, Urine Blood Trace-intact H, Urine Nitrate Negative, Urine Bilirubin Negative, Urine Urobilinogen 0.2, Ur Leukocyte Esterase Negative , Urine RBC 1 - 3, Urine WBC Negative, Ur Epithelial Cells 0 - 2, Urine Bacteria None - 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 Disposition/Present on Arrival - Present on Arrival Any Indicators Present on Arrival: No History of DVT/PE: No History of Uncontrolled Diabetes: No Urinary Catheter: No History of Decub. Ulcer: No History Surgical Site Infection Following: None - Disposition Have Diagnosis and Disposition been Completed?: Yes Diagnosis: Alcohol abuse, Desire for detoxification Disposition: OTHER INSTITUTION Disposition Time: 21:00 Patient Plan: Discharge ([facility]) Patient Problems: Current Active Problems Problem Status Onset Alcohol abuse Acute Desire for detoxification Acute Condition: GOOD Forms: [employer] (Azerbaijani)
[2018-04-18 19:30] LABS: URINE APPEARANCE SLIGHT-CLOUDY (CLEAR); URINE BILIRUBIN NEGATIVE (NEGATIVE); URINE BLOOD TRACE-INTACT (NEGATIVE); URINE COLOR YELLOW (YELLOW); URINE GLUCOSE (UA) NEGATIVE (NEGATIVE); URINE LEUKOCYTE ESTERASE NEGATIVE Leu/uL (NEGATIVE); URINE PROTEIN 100 mg/dL (<30 mg/dL); URINE UROBILINOGEN 0.2 E.U./dL (<1 E.U./dL)
[2018-04-18 19:33] LABS: URINE EPITHELIAL CELLS 0 - 2 /hpf (0-5); URINE WBC NEGATIVE /hpf (0-6)
[2018-04-18 19:41] LABS: BASO # 0.02 K/mm3 (0.0-2.0); BASO % 0.3 % (0.0-3.0); EOS # 0.3 (0.0-0.7); EOS % 4.2 % (1.5-5.0); GRAN # 2.8 (1.4-6.5); GRAN % 45.5 % (50.0-68.0); HEMOGLOBIN 14.1 g/dL (14.0-18.0); LYMPH # 2.9 (1.2-3.4); LYMPH % 46.8 % (22.0-35.0); MEAN CELL VOLUME 91.5 fl (80.0-105.0); MEAN CORPUSCULAR HEMOGLOBIN 31.6 pg (25.0-35.0); MEAN CORPUSCULAR HGB CONC 34.6 g/dl (31.0-37.0); MEAN PLATELET VOLUME 9.5 fl (7.0-11.0); MONO # 0.2 (0.1-0.6); MONO % 3.2 % (1.0-6.0); RBC 4.46 10^6/uL (3.5-6.1); RED CELL DISTRIBUTION WIDTH 13.9 % (11.5-14.5); WHITE BLOOD COUNT 6.2 10^3/ul (4.5-11.0)
[2018-04-18 19:51] LABS: BARBITURATES, UR NEGATIVE (NEGATIVE); BENZODIAZEPINES, UR NEGATIVE (NEGATIVE); OPIATES, UR NEGATIVE (NEGATIVE); PHENCYCLIDINE, UR NEGATIVE (NEGATIVE)
[2018-04-18 19:54] LABS: ALB/GLOB RATIO 1.4 (1.1-1.8); ALBUMIN 4.3 g/dL (3.0-4.8); ALT/SGPT 42 U/L (7-56); AST/SGOT 42 U/L (17-59); BLOOD UREA NITROGEN 11 mg/dL (7-21); CALCIUM 8.6 mg/dL (8.4-10.5); GFR NON-AFRICAN AMERICAN > 60
[2018-04-19 07:35] VITALS: RESP 17
[2018-04-19 07:38] VITALS: BP 138/76; PULSE 89; TEMP 98; O2SAT 98
== END 2018-04-18 21:50 | disposition designated cancer center or children's hospital (05) ==
LOC: ED 17:14
DX: F10.10 Alcohol abuse, uncomplicated (principal); Y90.8 Blood alcohol level of 240 mg/100 ml or more
CPT/HCPCS: 80053; 81001; 85025; 99283; G0480

== ENCOUNTER 2018-05-24 11:44 | Emergency (ER) | payer BC ==
[2018-05-24 11:44] VITALS: BMI 38.3
[2018-05-24 12:07] VITALS: RESP 18; TEMP 98.1
[2018-05-24 13:37] VITALS: BP 123/72; PULSE 93; O2SAT 100
--- NOTE | 2018-05-24 14:11 | RAD ---
Date of service: 05/24/2018 PROCEDURE: Radiographs of the left elbow. HISTORY: elbow pain s/p injury yest. h/o surgery on elbow. COMPARISON: No prior. FINDINGS: BONES: No acute fracture identified. Posttraumatic changes suggested left radial head. JOINTS: Normal. No osteoarthritis. SOFT TISSUES: Normal. JOINT EFFUSION: None. OTHER FINDINGS: None IMPRESSION: No acute fracture identified on the current study. Presumed posttraumatic changes radial head.
--- NOTE | 2018-05-24 22:17 | ED PDOC ---
Arrival/HPI - General Chief Complaint: Upper Extremity Problem/Injury Time Seen by Provider: 05/24/18 12:13 Historian: Patient - History of Present Illness Narrative History of Present Illness (Text): 05/24/18 22:20 42 year old male with past medical history of hypertension and gout presents to the emergency department complaining of left elbow pain x 2 days. Pain is sharp and worse with flexion and extension. He is not taking anything for pain. 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 Pain worsened yesterday when he got his elbow stuck between a box and the wall. Patient had surgery on the elbow a few years ago after fracturing it in an accident. There are no metal plates or screws in the elbow. Denies fever, chest pain, palpitations, shortness of breath, cough, numbness, paresthesias, weakness, shoulder pain, wrist pain. Past Medical History - Provider Review Nursing Documentation Reviewed: Yes - Infectious Disease Hx of Infectious Diseases: None - Tetanus Immunization Tetanus Immunization: Up to Date - Past Medical History Past Medical History: No Previous - Cardiac Hx Cardiac Disorders: Yes Hx Hypertension: Yes - Pulmonary Hx Respiratory Disorders: No - Neurological Hx Neurological Disorder: No - HEENT Hx HEENT Disorder: No - Renal Hx Renal Disorder: No - Endocrine/Metabolic Hx Endocrine Disorders: No - Hematological/Oncological Hx Blood Disorders: No - Integumentary Hx Dermatological Disorder: No - Musculoskeletal/Rheumatological Hx Musculoskeletal Disorders: Yes Hx Gout: Yes - Gastrointestinal Hx Gastrointestinal Disorders: Yes Other/Comment: INFLAMMED LIVER - Genitourinary/Gynecological Hx Genitourinary Disorders: No - Psychiatric Hx Substance Use: Yes Other/Comment: alcohol abuse - Past Surgical History Past Surgical History: Non-Contributing - Surgical History Hx Orthopedic Surgery: Yes (left arm surgery and right knee surgery) - Anesthesia Hx Anesthesia: Yes Hx Anesthesia Reactions: No Hx Malignant Hyperthermia: No - Suicidal Assessment Feels Threatened In Home Enviroment: No Family/Social History - Physician Review Nursing Documentation Reviewed: Yes Family/Social History: No Known Family HX Smoking Status: Current Some Days Smoker Hx Alcohol Use: Yes Frequency of alcohol use: Socially Hx Substance Use: Yes Substance used: marijuana; crack - last used 01/28/2017 Hx Substance Use Treatment: No Allergies/Home Meds Allergies/Adverse Reactions: Allergies almond Allergy (Verified 05/24/18 12:07) ANAPHYLAXIS Review of Systems - Physician Review All systems were reviewed & negative as marked: Yes - Review of Systems Constitutional: Normal. absent: Fevers Eyes: Normal. absent: Vision Changes ENT: Normal Respiratory: Normal. absent: SOB, Cough Cardiovascular: Normal. absent: Chest Pain, Palpitations, Syncope Gastrointestinal: Normal. absent: Abdominal Pain, Nausea, Vomiting Genitourinary Male: absent: Normal Musculoskeletal: Arthralgias (left elbow). absent: Back Pain, Neck Pain, Joint Swelling Skin: Normal. absent: Rash, Skin Lesions, Laceration, Cellulitis Neurological: Normal. absent: Headache, Dizziness Physical Exam Vital Signs Reviewed: Yes Vital Signs Temp Pulse Resp BP Pulse Ox 05/24/18 13:36 93 H 18 123/72 100 05/24/18 12:06 98.1 F 108 H 18 119/61 99 Temperature: Afebrile Blood Pressure: Normal Pulse: Regular Respiratory Rate: Normal Appearance: Positive for: Well-Appearing, Non-Toxic, Comfortable Pain Distress: None Mental Status: Positive for: Alert and Oriented X 3 - Systems Exam Head: Present: Atraumatic, Normocephalic Pupils: Present: PERRL Extroacular Muscles: Present: EOMI Conjunctiva: Present: Normal Mouth: Present: Moist Mucous Membranes Neck: Present: Normal Range of Motion Respiratory/Chest: Present: Clear to Auscultation, Good Air Exchange. No: Respiratory Distress, Accessory Muscle Use Cardiovascular: Present: Regular Rate and Rhythm, Normal S1, S2. No: Murmurs Abdomen: No: Tenderness, Distention, Peritoneal Signs Back: Present: Normal Inspection Upper Extremity: Present: Normal Inspection, NORMAL PULSES, Tenderness (medial e lbow), Neurovascularly Intact, Capillary Refill < 2s, Norm 2-Pt Discrimination. No: Cyanosis, Edema, Normal ROM (decreased secondary to pain), Swelling, Erythema, Temperature Abnormalties, Deformity Lower Extremity: Present: Normal Inspection, Normal ROM. No: Edema Neurological: Present: GCS=15, CN II-XII Intact, Speech Normal, Motor Func Grossly Intact, Normal Sensory Function, Gait Normal, Memory Normal Skin: Present: Warm, Dry, Normal Color. No: Rashes, Erythematous, Hot, Abscess Psychiatric: Present: Alert, Oriented x 3, Normal Insight, Normal Concentration, Normal Affect, Normal Mood Medical Decision Making ED Course and Treatment: 10/20/18 22:16 Initial Plan: --left elbow xray --toradol --suzanna bandage LEFT elbow xray: Chronic radial head changes; no acute fracture. Impression: elbow pain Plan: Take 600mg ibuprofen every 6 hours with food as needed for pain Ice the injured area and keep compressed Followup with primary doctor within 2 days Followup with orthopedics if pain persists > 7 days Return to ER with worsening symptoms - RAD Interpretation Radiology Orders: 05/24/18 12:14 ELBOW LEFT 3 VIEWS ROUTINE [RAD] Stat - Medication Orders Current Medication Orders: Discontinued Medications Ketorolac Tromethamine (Toradol) 60 mg IM STAT STA Stop: 05/24/18 12:15 Last Admin: 05/24/18 12:25 Dose: 60 mg MAR Pain Assessment Document 05/24/18 12:25 EQ (Rec: 05/24/18 12:25 EQ [facility] [place] Pain Reassessment Is this a pain reassessment? No Sleep Is patient sleeping during reassessment? No Presence of Pain Presence of Pain Yes IM Administration Charges Document 05/24/18 12:25 EQ (Rec: 05/24/18 12:25 EQ [facility] [place] Charges for Administration # of IM Administrations 1 Disposition/Present on Arrival - Present on Arrival Any Indicators Present on Arrival: No History of DVT/PE: No History of Uncontrolled Diabetes: No Urinary Catheter: No History of Decub. Ulcer: No History Surgical Site Infection Following: None - Disposition Have Diagnosis and Disposition been Completed?: Yes Diagnosis: Elbow pain Disposition: HOME/ ROUTINE Disposition Time: 12:30 Patient Plan: Discharge Condition: IMPROVED Discharge Instructions (ExitCare): Muscle Strain Additional Instructions: Take 600mg ibuprofen every 6 hours with food as needed for pain Ice the injured area and keep compressed Followup with primary doctor within 2 days Followup with orthopedics if pain persists > 7 days Return to ER with worsening symptoms Prescriptions: Ibuprofen [Motrin Tab] 600 mg PO Q6H PRN #30 tab PRN Reason: Pain, Moderate (4-7) Referrals: Gustavo Banuelos DO [Staff Provider] - Follow up with primary Agatha Martinez MD [Medical Doctor] - Follow up with primary Forms: [employer] ([place]ic), WORK NOTE
== END 2018-05-24 13:36 | disposition home or self-care (01) ==
LOC: ED 11:44
DX: M25.522 Pain in left elbow (principal); I10 Essential (primary) hypertension
CPT/HCPCS: 73080; 96372; 99283; J1885